=== PATIENT | female | born 1965 | race Caucasian/White ===

== ENCOUNTER 2019-02-25 15:06 | Emergency (ER) | payer MEDICAID ==
[~2019-02-25] VITALS: Ht 165.1 cm; Wt 69.9 kg
[2019-02-25 15:12] VITALS: BP 147/123
[2019-02-25 15:54] LABS: MICROSCOPIC NOT IND
[2019-02-25 15:56] LABS: ANION GAP 6 mmol/L (5-15); CALCIUM 9.4 mg/dL (8.5-10.1); CHLORIDE 107 mmol/L (98-107)
[2019-02-25 15:57] LABS: BASOPHILS # (AUTO) 0.04 x10^3/uL (0-0.1); BASOPHILS % (AUTO) 1 % (0-1); EOSINOPHILS # (AUTO) 0.19 x10^3/uL (0-0.4); EOSINOPHILS % (AUTO) 3 % (1-7); LYMPHOCYTES # (AUTO) 2.45 x10^3/uL (1-3.4); LYMPHOCYTES % (AUTO) 33 % (22-44); MD NO; MEAN CORPUSCULAR HEMOGLOBIN 30.3 pg (27.0-34.8); MEAN CORPUSCULAR HGB CONC 32.4 g/dL (32.4-35.8); MEAN CORPUSCULAR VOLUME 93.6 fL (80-100); MEAN PLATELET VOLUME 9.1 fL (7.4-10.4); MONOCYTES # (AUTO) 0.49 x10^3/uL (0.2-0.8); MONOCYTES % (AUTO) 7 % (2-9); NEUTROPHILS # (AUTO) 4.19 x10^3/uL (1.8-6.8); NEUTROPHILS % (AUTO) 57 % (42-75); PLATELET COUNT 270 x10^3/uL (130-400); RED CELL DISTRIBUTION WIDTH 14.1 % (9.6-15.2)
[2019-02-25 16:03] LABS: CULTURE INDICATED? NO
--- NOTE | 2019-02-25 17:08 | NUR ---
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
[2019-02-25] MEDS ORDERED: METHOCARBAMOL 750 MG TABLET PO ONE (17:30)
[2019-02-25] MEDS ORDERED: KETOROLAC 30 MG/1 ML IM ONE (17:30)
[2019-02-25] MEDS ORDERED: METHOCARBAMOL 750 MG TABLET ONE (17:36)
[2019-02-25] MEDS ORDERED: KETOROLAC 30 MG/1 ML ONE (17:37)
--- NOTE | 2019-02-25 17:53 | NUR ---
pt medicated per order. will observe for 15 min before dc
== END 2019-02-25 18:12 | disposition home or self-care (01) ==
LOC: ED 18:06
DX: S39.012A Strain of muscle, fascia and tendon of lower back, initial encounter (principal); M62.830 Muscle spasm of back; X58.XXXA Exposure to other specified factors, initial encounter; Y93.89 Activity, other specified; Y92.89 Other specified places as the place of occurrence of the external cause; Y99.8 Other external cause status
CPT/HCPCS: 36415; 71045; 80048; 81003; 82040; 85025; 93005; 96372; 99284; J1885